=== PATIENT | female | born 1995 | race Caucasian/White ===

== ENCOUNTER 2024-06-19 13:05 | Outpatient (CLI) | payer BC, SELFPAY ==
[2024-06-19 14:46] LABS: Free T4 (Free Thyroxine) 1.58 ng/dl (0.78-2.19)
[2024-06-19 14:59] LABS: Thyroid Stimulating Hormone 0.51 uIU/mL (0.465-4.68)
[2024-06-19 16:17] LABS: HCG,Quantitative 22172 mIU/ml (0-5.42)
== END 2024-06-19 23:59 | disposition home or self-care (01) ==
PROVIDERS: PCP Internal Medicine; Visit Provider Internal Medicine
DX: E03.9 Hypothyroidism, unspecified (principal); Z34.90 Encounter for supervision of normal pregnancy, unspecified, unspecified trimester
CPT/HCPCS: 36415; 84439; 84443; 84702